=== PATIENT | male | born 1945 | race Caucasian/White ===

== ENCOUNTER 2016-11-25 15:49 | Inpatient (IN) | payer OTHER ==
[~2016-11-25] VITALS: Ht 175.3 cm; Wt 73.5 kg
--- NOTE | ~2016-11-25 | WND ---
ADMIT: 11/25/2016 RM/LOC: 431 [facility] MR#: [id number] 2620 [facility] [address] [place] [id number] BONIFACIO JULIO [address] [place] [address] [facility] SEX: M AGE: 71 : 1945 DATE OF VISIT: 11/27/2016 TIME OF VISIT: 15 minutes. REASON FOR CONSULT: Right knee ulceration. This is a request for wound care from Dr. Khurram Brooke. HISTORY OF PRESENT ILLNESS: Bonifacio is a 71-year-old gentleman, who normally receives his care from the [facility], who was admitted through the emergency room on November 25, 2016, for increased weakness and confusion. It was found that he had some cellulitis with sepsis. Chronic obstructive pulmonary disease with exacerbation, possible pneumonia, and hypoxic respiratory failure. He also has a history of congestive heart failure and coronary artery disease. He is being seen today by Wound Care for an ulceration to his right knee. He reports that he fell about 2 to 3 weeks ago. He reports he has some troubles with dizziness. PAST MEDICAL HISTORY: Coronary artery disease, AICD, hypertension, and COPD. ALLERGIES: Bupropion. MEDICATIONS: 1. Aspirin. 2. Cordarone. 3. Coreg. 4. Culturelle. 5. Deltasone. 6. Lipitor. 7. Vitamin D. 8. Zithromax. 9. Dulera. 10.Rocephin. FAMILY HISTORY: His mother and father both in their early 70s. He reports that was due to smoking. 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 He admits to smoking 2 packs of cigarettes a day for the last 30 years. REVIEW OF SYSTEMS: He is denying complaints of chest pain or shortness of breath. He denies nausea, vomiting, or diarrhea. PHYSICAL EXAMINATION: VITAL SIGNS: Temperature 97 degrees Fahrenheit, pulse 68, respirations 16, blood pressure 95/49, and pulse ox 98% on 2 L of oxygen. EXTREMITIES: Assessment of his right lower extremity shows a foot circumference of 24 cm, ankle 20, and calf of 31. He has no edema noted. He ADMIT: 11/25/2016 RM/LOC: 431 [facility] MR#: [id number] [id number] [place], [place] [address] BONIFACIO JULIO [address] [place] [address] [facility] SEX: M AGE: 71 : 1945 has a 2+ dorsalis pedis pulse and 2+ posterior tibial pulse. He has a dry crust over his right knee that measures 2.3 cm in length x 2 cm in width. It is stable without periwound erythema or drainage. ASSESSMENT: Abrasion to his right knee. PLAN: We will have staff just to continue to monitor the area for signs and symptoms of infection as evidenced by increased redness, increased drainage, or increased pain and notify [facility] if they see the signs. At this time, there is no indication for having a dressing. Wound Care will continue to monitor this. Annemarie Cool APRN/ jonel JOB #: [id number] CC: Khurarm Brooke MD, Attending Physician Khurram Brooke MD, Family Physician
--- NOTE | ~2016-11-25 | ECH ---
Transthoracic Echocardiography Report (TTE) Demographics Patient Name BONIFACIO JULIO Date of Study 11/27/2016 Patient Number [id number] Visit Number [id number] Date of 1945 Room Number 431 Accession Number [id number] Gender Male Age 71 year(s) Referring Edwardo Moreland Attacher Kayleigh Solano [facility] Physician Physician Interpreting Jaziel Cox MD Roll Cleaner Physician Supervising Ordering Physician Edwardo Moreland MD, MD/P Nurse Stress Shipping Specialist Conclusions Summary Technically fair exam. The estimated left ventricular ejection fraction is 55-60%. Mild left ventricular hypertrophy. Diastolic assessment reveals normal relaxation. Aortic sclerosis without any hemodynamic significant stenosis. Mild mitral regurgitation by color Doppler. Mild tricuspid regurgitation by color Doppler. Estimated pulmonary pressures within normal range. Procedure Type of Study TTE procedure:Echo Complete SF. Procedure Date Date: 11/27/2016 Start: 08:52 AM Technical Quality: Fair Indications:Chest pain, elevated cardiac enzymes and Congestive heart failure. Additional Indications:AICD Appropriate Use Criteria: 9 Height: 69 inches Weight: 159 pounds BSA: 1.87 m Rhythm: Within normal limits HR: 71 bpm BP: 107/51 mmHg M-Mode/2D Measurements LV Diastolic Dimension: 3.74 cm LV Systolic Dimension: 3.73 cm LV Septum Diastolic: 1.09 cm LV PW Diastolic: 1.13 cm AO Root Dimension: 2.59 cm Cardiac Output: 4.87 l/min LA Dimension: 3.27 cm Cardiac Index: 2.6 l/min*m RV Diastolic Dimension: 2.87 cm LA volume index: 26 ml/m LVOT: 1.88 cm LVOT VTI: 24.74 cm RV Base: 4 cm LV Stroke volume: 68.64 ml RV Mid: 1.8 cm LV Stroke volume index: 36.71 ml/m RV Length: 8 cm TAPSE: 2.5 cm TDI-S': 11 cm/s Doppler Measurements AV Peak Velocity: 2.21 m/s MV Peak E-Wave: 1.01 m/s AV Peak Gradient: 19.58 mmHg MV Peak A-Wave: 0.94 m/s AV Mean Gradient: 8.41 mmHg MV E/A Ratio: 1.08 LVOT Peak Velocity: 1.37 m/s MV P1/2t: 57 msec AV Area (Continuity):1.81 cm MV Deceleration Time: 196.7 msec TR Velocity:2.59 m/s MV Area (PHT): 3.86 cm TR Gradient:26.86 mmHg Estimated RAP:5 mmHg Estimated PASP: 31.86 mmHg Estimated RVSP: 32 mmHg RA Area: 15.96 cm Findings Left Ventricle The left ventricle is normal in size . Mild left ventricular hypertrophy. Diastolic assessment reveals normal relaxation. Right Ventricle Normal right ventricle structure and function. Device lead noted in the right ventricle. Left Atrium Normal left atrial size. Right Atrium Normal right atrial size. Device lead seen in the right atrium. Mitral Valve Mild thickening of the mitral valve leaflets. Mild mitral regurgitation by color Doppler. Aortic Valve The aortic valve is mildly sclerotic with a mean gradient of 8mmHg. Tricuspid Valve Normal appearing tricuspid valve. Mild tricuspid regurgitation by color Doppler. Estimated pulmonary pressures within normal range. Pulmonic Valve The pulmonic valve is not well visualized. Pericardial Effusion No evidence of pericardial effusion. Miscellaneous Visualized portions of the aortic root and ascending aorta appear normal in size. Contractility Score LV regional wall motion:(0-Non visualized 1-Normal 2-Hypokinesis 3-Akinesis 4-Dyskinesis 5-Aneurysm) Signature
--- NOTE | 2016-11-26 16:55 | HP ---
ADMIT: 11/25/2016 RM/LOC: 427 [facility] MR#: [id number] 2620 [facility] [address] [place], [place] [address] JUSTIN JULIOABIGAIL Mattson [address] [place] [id number] History and Physical SEX: M AGE: 71 : 1945 DATE OF SERVICE: CHIEF COMPLAINT: Weakness, confusion. HISTORY OF PRESENT ILLNESS: This is a 71-year-old gentleman, who usually gets his care at the [facility]. He reported he had just been feeling confused lately and not getting around as well. He thinks he has had a little bit of increased cough, does cough up a little sputum. Had a little bit of wheeze, but he has smoked a couple of packs a day for over 50 years. He denies any specific problems, but then he overall feels kind of weak. He has had a few falls recently, one recently in the flower garden. He scraped up his right knee and his right elbow, and he has a few other abrasions. He does not know much of his history. He did say he has had some heart problems. He has what looks like a pacemaker. According to the records, he has had an AICD, hypertension, and COPD. PAST SURGICAL HISTORY: He has had a right elbow surgery related to an injury when he was in [place]. SOCIAL HISTORY: He has been a long-time smoker over 100-pack year history. He lives alone. The patient was in [place] for two years. FAMILY HISTORY: Reviewed but noncontributory. REVIEW OF SYSTEMS: Complete review of systems obtained and negative except as above. PHYSICAL EXAMINATION: VITAL SIGNS: Temperature 101.5, pulse 77, respirations 16, blood pressure 120/54, oxygen saturation 92% on 2 L of oxygen by nasal cannula. GENERAL: This is a well-appearing 71-year-old gentleman, in no apparent distress. He is alert and oriented. He is wearing glasses. HEENT: Pupils are equal, round, and reactive to light and accommodation. Extraocular muscles are intact. His throat is clear. NECK: Supple. Trachea midline. Thyroid not palpable. HEART: Regular rate and rhythm. LUNGS: Diminished bilaterally. He has end-expiratory wheezes bilaterally and an inspiratory rhonchi. ABDOMEN: Soft without any tenderness. He has a pacemaker in his left upper chest. Scar on his anterior right antecubital space. On the posterior right forearm, he has a large what looks like abrasion. Abdomen is soft without any tenderness. Normal bowel sounds. LOWER EXTREMITIES: He has no edema. NEURO: His cranial nerves are intact. PSYCH: His memory is poor, but he seems alert and oriented to person and place at this time. SKIN: He has a red indurated area over his right patella and a few other abrasions as noted. ADMIT: 11/25/2016 RM/LOC: 427 [facility] MR#: [id number] [address] [place] [id number] BONIFACIO JULIO [address] [place] [address] History and Physical SEX: M AGE: 71 : 1945 LABORATORY AND X-RAY DATA: Urine culture and blood cultures done and pending. CBC with a white count of 11.7, hemoglobin 13.0, and platelets of 132. INR was normal. Lactic acid was 1.3, procalcitonin 0.19. Urinalysis; 1+ blood, 1+ protein, 4 red cells. Chest x-ray shows some peribronchial cuffing, mildly prominent interstitial markings. Head CT with no acute findings. CMP with sodium of 128, potassium of 3.4, chloride 95, bicarb 24, BUN 12, creatinine 0.8, phosphorus is 1.4, magnesium 2.2, AST is 59, albumin 3.3. Troponin 0.063, creatine kinase is 1639, MB is 5.4%. Alcohol was negative. ASSESSMENT: 1. Mental status changes/confusion. 2. Cellulitis with sepsis. 3. Chronic obstructive pulmonary disease with exacerbation, possible pneumonia, but we will see what his x-ray shows in the next few days. 4. Hypoxic respiratory failure, acute. 5. History of congestive heart failure. 6. Coronary artery disease. 7. Skin wounds. PLAN: We will treat his lung issue. Blood pressure is trending a little lower with the fever. I will give him some fluid boluses right now. He has frequent falls. We will have him see PT and OT with pulmonary toilet for COPD. Trend his cardiac enzymes as well. We are going to do the Rocephin and azithromycin for his lungs and cellulitis. We will do an echo on Sunday, Lovenox and wound care as well as daily aspirin at this point. We still do not know [facility] and[facility]or his other past history. We will address that when we get the fax from them. Khurram Brooke MD/ jonel JOB #: [id number] CC: Khurram Brooke, Attending Physician Khurram Brooke, Family Physician
[2016-11-28] MEDS ORDERED: AMIODARONE HCL200 MG PO (15:59)
[2016-11-28] MEDS ORDERED: ASPIR-LOW81 MG PO (16:00)
[2016-11-28] MEDS ORDERED: LIPITOR80 MG PO (16:00)
[2016-11-28] MEDS ORDERED: COREG DPS6.25 MG PO (16:00)
[2016-11-28] MEDS ORDERED: VITAMIN D2000 UNIT PO (16:01)
[2016-11-28] MEDS ORDERED: OMNICEF DPS300 MG OP (16:01)
[2016-11-28] MEDS ORDERED: VITAMIN B-121000 MC3 IM (16:01)
[2016-11-28] MEDS ORDERED: PREDNISONE20 MG PO (16:02)
[2016-11-28] MEDS ORDERED: ACIDOPHILUS LACT1 GM PO (16:02)
[2016-11-28] MEDS ORDERED: ZESTRIL DPS40 MG PO (16:02)
[2016-11-28] MEDS ORDERED: DULERA 100/58.8 GM IH (16:03)
[2016-11-28] MEDS ORDERED: NICOTINE PATCH1 EAC1 TP (16:03)
[2016-11-28] MEDS ORDERED: ZITHROMAX500 MG PO (16:03)
[2016-11-28] MEDS ORDERED: SPIRIVA18 MCG IH (16:03)
--- NOTE | 2016-12-09 08:43 | ER ---
ADMIT: 11/25/2016 RM/LOC: 431 [facility] MR#: [id number] [address] [facility] [address] [place], [place] [address] NORI BONIFACIO D [address] [place] [address] Emergency Room Report SEX: M AGE: 71 : 1945 DATE: 11/25/2016 This 71-year-old gentleman brought to the Emergency Department by his niece. He apparently has been having problems with falling, generalized weakness, and forgetfulness. Uncertain as to the onset of these symptoms though it has been days ago. Apparently, his daughter who lives in [place] called him several days ago and noted him to be forgetful during the conversation. The patient himself is not certain when the symptoms started, says he has been having problems with forgetfulness. He does live at home, cares for himself. He describes generalized weakness. He says he is unsteady when he is walking. REVIEW OF SYSTEMS: As above. PAST MEDICAL HISTORY: Says he is not certain what his past illnesses or what medicines he takes, but he says he has not been taking them because he cannot remember. SOCIAL HISTORY: Smokes 2 packs cigarettes a day. Occasional alcohol use. PHYSICAL EXAMINATION: GENERAL: Reveals a frail-appearing 71-year-old gentleman who is alert but disoriented to time, place, and situation. NEUROLOGICAL: Cranial nerves are intact. He will not cooperate with cerebellar exam. Motor, significant for generalized weakness. He is appropriate. LUNGS: Mild scattered wheezes throughout. CARDIOVASCULAR: Regular rate and rhythm. ABDOMEN: Soft and nontender. SKIN: Remarkable for erythema over the right knee. There is no effusion present. EXTREMITIES: There is no pedal edema. EMERGENCY ROOM COURSE: Lab work, WBC is 11.7, lactic acid negative. Platelets 192. Chemistries were significant for a total CK of 1639, MB of 5.4, troponin 0.063. EKG shows no acute findings. The patient is being admitted for altered mental status, acute coronary syndrome, and cellulitis of the right knee. He was given Keflex in the Emergency Department and aspirin. Gume Bai MD/ jonel JOB #: [id number] CC: Khurram Brooke MD, Attending Physician Khurram Brooke MD, Family Physician
--- NOTE | 2016-12-19 07:49 | DS ---
ADMIT: 11/25/2016 RM/LOC: 431 [facility] MR#: [id number] [address] [place], [place] [address] BONIFACIO JULIO [address] [place] [address] General Discharge Summary SEX: M AGE: 71 : 1945 ADMISSION DATE: 11/25/2016 DISCHARGE DATE: 11/27/2016 Twenty minutes taken on the day of discharge for discharge-related activities. FINAL DIAGNOSES: 1. Mental status change. 2. Cellulitis with sepsis. 3. Chronic obstructive pulmonary disease with exacerbation. 4. Tobacco abuse. 5. History of congestive heart failure. 6. Hypertension. 7. Hypoxic respiratory failure. 8. Skin wounds. REASON FOR ADMISSION: This is a 71-year-old gentleman, who is a who presented with confusion and weakness. He had a temp of 101.5 when he presented. Upon admission, he was wheezy, placed on IV antibiotics and some IV steroids. Looked like he had some right lower lobe pneumonia and placed on inhalers. He had some hypoxic respiratory failure requiring oxygen. On the day of discharge, he was doing okay. He still needs some oxygen at times, so with activity and at rest, he needed 2 L, so this was set up for him to have at home. He was arranged to be discharged to home with his usual medicine plus Omnicef 300 mg b.i.d. for 7 days and home oxygen for 2 L. Follow up with his regular doctor in 1 to 2 weeks. Khurram Brooke MD/ jonel JOB #: [id number] CC: Khurram Brooke MD, Attending Physician Khurram Brooke MD, Family Physician
== END 2016-11-27 16:40 | disposition home or self-care (01) | DRG 871 ==
LOC: ER 15:49 → 4PCU 18:15
PROVIDERS: ADMIT Internal Medicine
DX: A41.9 Sepsis, unspecified organism (principal); J96.01 Acute respiratory failure with hypoxia; I11.0 Hypertensive heart disease with heart failure; J18.9 Pneumonia, unspecified organism; L03.115 Cellulitis of right lower limb; I50.9 Heart failure, unspecified; J44.0 Chronic obstructive pulmonary disease with (acute) lower respiratory infection; J44.1 Chronic obstructive pulmonary disease with (acute) exacerbation; Z23 Encounter for immunization; W19.XXXA Unspecified fall, initial encounter; S80.211A Abrasion, right knee, initial encounter; F17.210 Nicotine dependence, cigarettes, uncomplicated; I25.10 Atherosclerotic heart disease of native coronary artery without angina pectoris; Z95.810 Presence of automatic (implantable) cardiac defibrillator; Z91.81 History of falling